=== PATIENT | male | born 1985 | race Caucasian/White ===

== ENCOUNTER 2016-12-21 16:57 | Emergency (ER) | payer OTHER ==
[~2016-12-21] VITALS: Ht 166.4 cm; Wt 73.4 kg
[2016-12-21 17:03] VITALS: TEMP 36.4; Ht 166.4 cm; Wt 73.4 kg
--- NOTE | 2016-12-21 18:29 | EMERGENCY ROOM VISIT NOTE ---
History First contact with patient: 18:26 Chief Complaint: CHEST PAIN Stated Complaint: CHEST PAIN,IRREGULAR HEARTBEAT Nursing Triage Summary: Patient ambulatory to triage with a steady and upright gait, states "I started working out for the first time in a while this week. After waking this morning, I noticed that I developed a tightness in the center of my chest. It has been coming and going throughout the day today. On my way home from work, I noticed that my pulse was pretty irradic too." Patient denies any medical history. History of Present Illness The patient is a 31 year old male who presents to the Emergency Room with complaints of chest tightness today Has resumed gyming after a 2 month hiatus. Last gym session on Saturday. Patient was well and Saturday morning, up until 9am after breakfast. [place] a chest tightness centrally - was stationary at the time when the tightness started. Since then, the tightness has been persistent and gotten progressively worse. No alleviating and exacerbating factors. Describes an episode of a tingling sensation diffusely over body, no numbness or weakness. No radiation of pain to arm, jaw or back. Not associated with SOB but does notice difficulty in chest expansion on full inspiration. Had some clamminess but unsure if he has had palpitations. Denies trauma. fall, and states he was focusing on cardio at the gym rather than weight lifting. No similar episodes in the past. No asthma, non smoker. No personal hx of cardiac issues. Fam history of HLD (mom), multiple TIAs (dad), [place] and CAD in aunts and uncles Review of Systems See HPI for pertinent positives and negatives. A total of ten systems were reviewed and were otherwise negative. Social History Smoking Status: Never Smoker Smokeless Tobacco Use: No Drug Use: none Marital Status: Housing Status: lives with family Occupation Status: employed Current/Historical Medications No Active Prescriptions or Reported Meds Physical Exam Vital Signs Date Time Temp Pulse Resp B/P (MAP) Pulse Ox O2 Delivery O2 Flow Rate FiO2 12/21/16 20:25 67 20 119/75 98 12/21/16 18:27 63 12/21/16 18:26 61 18 122/85 99 12/21/16 17:05 100 Room Air 12/21/16 17:03 36.4 67 18 140/99 97 Room Air Physical Exam GENERAL: Alert, sitting in bed, no acute distress, non-toxic HEAD: NC/AT. No sinus tenderness. NECK: Supple, no adenopathy, non-tender LUNGS: Clear to auscultation. Normal chest wall mechanics, good air entry. No crepitations, crackles, or wheezes HEART: No murmurs, S1 and S2 normal CHEST: No reproducible tenderness with palpation or arm movement. ABDOMEN: abdomen soft, non-tender, normo-active bowel sounds, no masses, no rebound or guarding. BACK: Back is symmetrical on inspection, no deformities, no midline tenderness, no CVA tenderness. SKIN: Warm, pink, dry. No erythema, rashes, or bruising. EXTREMITIES: Grossly normal. No pitting edema. Calves non tender. Strength 5/5 bilaterally. NEURO: Alert, Ox3. No focal deficits. Normal sensorium, cranial nerves II-XII grossly intact, normal speech. PSYCH: Mood and affect appropriate. Medical Decision & Procedures ER Provider Diagnostic Interpretation: CHEST ONE VIEW PORTABLE HISTORY: Atypical Chest Pain COMPARISON: None. FINDINGS: The lungs are clear. Cardiac silhouette is normal in size. No pleural effusions. No pneumothorax. IMPRESSION: No acute process. Laboratory Results 12/21/16 19:07 Red Blood Count 4.66, Mean Corpuscular Volume 88.6, Mean Corpuscular Hemoglobin 29.6, Mean Corpuscular Hemoglobin Concent 33.4, Mean Platelet Volume 12.0, Neutrophils (%) (Auto) 65.2, Lymphocytes (%) (Auto) 27.0, Monocytes (%) (Auto) 6.9, Eosinophils (%) (Auto) 0.4, Basophils (%) (Auto) 0.4, Neutrophils # (Auto) 4.42, Lymphocytes # (Auto) 1.83, Monocytes # (Auto) 0.47, Eosinophils # (Auto) 0.03, Basophils # (Auto) 0.03 12/21/16 19:07 Test 12/21/16 19:07 White Blood Count 6.79 K/uL (4.8-10.8) Red Blood Count 4.66 M/uL (4.7-6.1) Hemoglobin 13.8 g/dL (14.0-18.0) Hematocrit 41.3 % (42-52) Mean Corpuscular Volume 88.6 fL (80-100) Mean Corpuscular Hemoglobin 29.6 pg (25-34) Mean Corpuscular Hemoglobin Concent 33.4 g/dl (32-36) Platelet Count 252 K/uL (130-400) Mean Platelet Volume 12.0 fL (7.4-10.4) Neutrophils (%) (Auto) 65.2 % Lymphocytes (%) (Auto) 27.0 % Monocytes (%) (Auto) 6.9 % Eosinophils (%) (Auto) 0.4 % Basophils (%) (Auto) 0.4 % Neutrophils # (Auto) 4.42 K/uL (1.4-6.5) Lymphocytes # (Auto) 1.83 K/uL (1.2-3.4) Monocytes # (Auto) 0.47 K/uL (0.11-0.59) Eosinophils # (Auto) 0.03 K/uL (0-0.5) Basophils # (Auto) 0.03 K/uL (0-0.2) RDW Standard Deviation 38.2 fL (36.4-46.3) RDW Coefficient of Variation 11.9 % (11.5-14.5) Immature Granulocyte % (Auto) 0.1 % Immature Granulocyte # (Auto) 0.01 K/uL (0.00-0.02) D-Dimer < 190 ug/L FEU (0-500) Anion Gap 4.0 mmol/L (3-11) Est Creatinine Clear Calc Drug Dose 94.0 ml/min Estimated GFR () 114.9 Estimated GFR (Non- 99.1 BUN/Creatinine Ratio 14.8 (10-20) Calcium Level 9.5 mg/dl (8.5-10.1) Troponin I < 0.015 ng/ml (0-0.045) Medications Administered Medications (Trade) Dose Ordered Sig/Julia Route Start Time Stop Time Status Last Admin Dose Admin Ketorolac Tromethamine (Toradol Inj) 30 mg NOW STAT IV 12/21/16 19:06 12/21/16 19:07 DC 12/21/16 19:15 30 MG Sodium Chloride 1,000 ml @ 999 mls/hr Q1H1M STAT IV 12/21/16 19:11 12/21/16 20:11 DC 12/21/16 19:18 999 MLS/HR ECG Indication: chest pain Rate (beats per minute): 59 Rhythm: sinus bradycardia ED Course 1827: The patient was evaluated in room C7. A complete history and physical exam was performed. Ordered labs and diagnostics. 1905: Patient reassessed. Symptoms unchanged. Ordered Toradol and IVF 1925: Patient reassessed. Feeling better. Updated of results Medical Decision Prior records/ancillary studies reviewed. Triage Nursing notes reviewed. Additional history obtained from patient and . The patient's history was concerning for chest pain. Differential diagnosis: Etiologies such as cardiac ischemia, aortic dissection, pulmonary embolism, pneumonia, pneumothorax, musculoskeletal, infections, pericarditis, myocarditis , esophageal rupture, gastrointestinal, as well as others were entertained. Physical examination: As above. ER treatment provided: IV Toradol, IVF - NSS On reassessment the patient felt better. Diagnostic interpretation by me: The electrocardiogram was negative for pathologic change. The labs revealed borderline anemia, normal BMP, negative troponin, negative d- dimer Imaging studies: Chest x-ray as above By the evaluation outlined above emergent etiologies such as cardiac ischemia, aortic dissection, pulmonary embolism, pneumonia, pneumothorax, infections, pericarditis, myocarditis, gastrointestinal, as well as others were deemed relatively unlikely. The patient and were informed about the findings as listed above. All questions were answered and they were pleased with the treatment. Return instructions were outlined and the patient was discharged in stable condition. Outpatient prescription management: Nil Referral: The patient was referred back to his primary care physician for follow-up in 2 to 3 days for a recheck of the current condition. Impression Primary Impression: Non-cardiac chest pain Departure Information Dispostion Home / Self-Care Condition GOOD Prescriptions No Active Prescriptions or Reported Meds Referrals Jorden Thurman M.D. ([facility]) (PCP) Patient Instructions My [facility] Resident Tracking Resident Involvement: Resident Care Provided Care Provided: Adult ED
--- NOTE | 2016-12-21 18:44 | DIAGNOSTIC IMAGING REPORT ---
CHEST ONE VIEW PORTABLE HISTORY: Atypical Chest Pain COMPARISON: None. FINDINGS: The lungs are clear. Cardiac silhouette is normal in size. No pleural effusions. No pneumothorax. IMPRESSION: No acute process. Electronically signed by: Eladio Villavicencio M.D. 12/21/2016 6:43 PM Dictated Date/Time: 12/21/2016 6:42 PM
[2016-12-21] MEDS ORDERED: KETOROLAC TROMETHAMINE 30 MG/ML VIAL IV STA (19:06)
[2016-12-21] MEDS ORDERED: SODIUM CHLORIDE 0.9% 1000ML 1,000 ML IV STA (19:11)
[2016-12-21 19:21] LABS: BASO % 0.4 %; BASO ABS # 0.03 K/uL (0-0.2); COMPLETE YES; EOS % 0.4 %; HEMATOCRIT 41.3 % (42-52); IG% 0.1 %; LYMPH ABS # 1.83 K/uL (1.2-3.4); MEAN CELL VOLUME 88.6 fL (80-100); MEAN CORPUSCULAR HEMOGLOBIN 29.6 pg (25-34); MEAN CORPUSCULAR HGB CONC 33.4 g/dl (32-36); MONO % 6.9 %; NEUT % 65.2 %; PLATELET COUNT 252 K/uL (130-400); RED BLOOD COUNT 4.66 M/uL (4.7-6.1); WHITE BLOOD COUNT 6.79 K/uL (4.8-10.8)
[2016-12-21 19:39] LABS: BLOOD UREA NITROGEN 15 mg/dl (7-18); BUN/CREATININE RATIO 14.8 (10-20); CALCIUM 9.5 mg/dl (8.5-10.1); CARBON DIOXIDE 30 mmol/L (21-32); CHLORIDE 106 mmol/L (98-107); GLUCOSE 99 mg/dl (70-99); POTASSIUM 4.2 mmol/L (3.5-5.1); SODIUM 140 mmol/L (136-145)
[2016-12-21 20:25] VITALS: BP 119/75; PULSE 67; O2SAT 98
--- NOTE | 2016-12-21 20:44 | EMERGENCY ROOM VISIT NOTE ---
History Report prepared by Lora: Yan Reid Under the Supervision of: Dr. Juan Ramon Alford D.O. First contact with patient: 18:23 Chief Complaint: CHEST PAIN Stated Complaint: CHEST PAIN,IRREGULAR HEARTBEAT Nursing Triage Summary: Patient ambulatory to triage with a steady and upright gait, states "I started working out for the first time in a while this week. After waking this morning, I noticed that I developed a tightness in the center of my chest. It has been coming and going throughout the day today. On my way home from work, I noticed that my pulse was pretty irradic too." Patient denies any medical history. History of Present Illness The patient is a 31 year old male who presents to the Emergency Room with complaints of chest tightness that began 8 hours ago. He rates his symptom severity a 6/10. The patient recently began working out again after a 2 month hiatus. His last gym session was yesterday. Today, he was at work working with stationary machinery. He went throughout his day, and on his way home while he was in the car, the pain was worse than it had been in the beginning. He got clammy at this time but denied shortness breath. He denies any diaphoresis, shortness of breath, recent falls or trauma, abdominal pain, or diarrhea. He notes that he has been doing cardio, not weight lifting. He denies any recent trips or sick contacts. He does not have a personal cardiac history, but has an extensive cardiac family history. Denies any history of CAD, hypertension, hyperlipidemia or smoking. He also notes that he has been having tingling diffusely. Patient denies any swelling of his calves, recent surgeries, recent trips, hemoptysis, history of cancer or previous blood clots. Source of History: patient Onset: 8 hours ago Position: chest Symptom Intensity: 6/10 Quality: other (Tightness) Timing: constant Associated Symptoms: No fevers, No diaphoresis, No SOB, No abdominal pain, No diarrhea Note: He experienced a clammy feeling and diffuse tingling. Review of Systems See HPI for pertinent positives & negatives. A total of 10 systems reviewed and were otherwise negative. Family History FH: heart disease Hypertension Social History Smoking Status: Never Smoker Smokeless Tobacco Use: No Drug Use: none Marital Status: Housing Status: lives with family Occupation Status: employed Current/Historical Medications No Active Prescriptions or Reported Meds Allergies Coded Allergies: No Known Allergies (Unverified , 12/21/16) Physical Exam Vital Signs Date Time Temp Pulse Resp B/P (MAP) Pulse Ox O2 Delivery O2 Flow Rate FiO2 12/21/16 20:25 67 20 119/75 98 12/21/16 18:27 63 12/21/16 18:26 61 18 122/85 99 12/21/16 17:05 100 Room Air 12/21/16 17:03 36.4 67 18 140/99 97 Room Air Physical Exam GENERAL: alert, well appearing, well nourished, no distress, non-toxic, sitting up in bed. EYE EXAM: normal conjunctiva OROPHARYNX: no exudate, no erythema, lips, buccal mucosa, and tongue normal and mucous membranes are moist NECK: supple, no nuchal rigidity, no adenopathy, non-tender LUNGS: Clear to auscultation. Normal chest wall mechanics HEART: no murmurs, S1 normal and S2 normal ABDOMEN: abdomen soft, non-tender, normo-active bowel sounds, no masses, no rebound or guarding. BACK: Back is symmetrical on inspection and there is no deformity, no midline tenderness, no CVA tenderness. SKIN: no rashes and no bruising UPPER EXTREMITIES: upper extremities are grossly normal. Radial pulses equal. LOWER EXTREMITIES: No pitting edema. Calves equal bilaterally. NEURO EXAM: Normal sensorium, cranial nerves II-XII grossly intact, normal speech, no gross weakness of arms, no gross weakness of legs. Medical Decision & Procedures ER Provider Diagnostic Interpretation: Radiology results as stated below per my review and the radiologist's interpretation: CHEST ONE VIEW PORTABLE HISTORY: Atypical Chest Pain COMPARISON: None. FINDINGS: The lungs are clear. Cardiac silhouette is normal in size. No pleural effusions. No pneumothorax. IMPRESSION: No acute process. Electronically signed by: Eladio Villavicencio M.D. 12/21/2016 6:43 PM Dictated Date/Time: 12/21/2016 6:42 PM Laboratory Results 12/21/16 19:07 Red Blood Count 4.66, Mean Corpuscular Volume 88.6, Mean Corpuscular Hemoglobin 29.6, Mean Corpuscular Hemoglobin Concent 33.4, Mean Platelet Volume 12.0, Neutrophils (%) (Auto) 65.2, Lymphocytes (%) (Auto) 27.0, Monocytes (%) (Auto) 6.9, Eosinophils (%) (Auto) 0.4, Basophils (%) (Auto) 0.4, Neutrophils # (Auto) 4.42, Lymphocytes # (Auto) 1.83, Monocytes # (Auto) 0.47, Eosinophils # (Auto) 0.03, Basophils # (Auto) 0.03 12/21/16 19:07 Test 12/21/16 19:07 White Blood Count 6.79 K/uL (4.8-10.8) Red Blood Count 4.66 M/uL (4.7-6.1) Hemoglobin 13.8 g/dL (14.0-18.0) Hematocrit 41.3 % (42-52) Mean Corpuscular Volume 88.6 fL (80-100) Mean Corpuscular Hemoglobin 29.6 pg (25-34) Mean Corpuscular Hemoglobin Concent 33.4 g/dl (32-36) Platelet Count 252 K/uL (130-400) Mean Platelet Volume 12.0 fL (7.4-10.4) Neutrophils (%) (Auto) 65.2 % Lymphocytes (%) (Auto) 27.0 % Monocytes (%) (Auto) 6.9 % Eosinophils (%) (Auto) 0.4 % Basophils (%) (Auto) 0.4 % Neutrophils # (Auto) 4.42 K/uL (1.4-6.5) Lymphocytes # (Auto) 1.83 K/uL (1.2-3.4) Monocytes # (Auto) 0.47 K/uL (0.11-0.59) Eosinophils # (Auto) 0.03 K/uL (0-0.5) Basophils # (Auto) 0.03 K/uL (0-0.2) RDW Standard Deviation 38.2 fL (36.4-46.3) RDW Coefficient of Variation 11.9 % (11.5-14.5) Immature Granulocyte % (Auto) 0.1 % Immature Granulocyte # (Auto) 0.01 K/uL (0.00-0.02) D-Dimer < 190 ug/L FEU (0-500) Anion Gap 4.0 mmol/L (3-11) Est Creatinine Clear Calc Drug Dose 94.0 ml/min Estimated GFR () 114.9 Estimated GFR (Non- 99.1 BUN/Creatinine Ratio 14.8 (10-20) Calcium Level 9.5 mg/dl (8.5-10.1) Troponin I < 0.015 ng/ml (0-0.045) Laboratory results per my review. Medications Administered Medications (Trade) Dose Ordered Sig/Julia Route Start Time Stop Time Status Last Admin Dose Admin Ketorolac Tromethamine (Toradol Inj) 30 mg NOW STAT IV 12/21/16 19:06 12/21/16 19:07 DC 12/21/16 19:15 30 MG Sodium Chloride 1,000 ml @ 999 mls/hr Q1H1M STAT IV 12/21/16 19:11 12/21/16 20:11 DC 12/21/16 19:18 999 MLS/HR ECG Indication: chest pain (tightness) Rate (beats per minute): 59 Rhythm: sinus bradycardia Findings: no ectopy, other (Normal axis) ED Course ED COURSE: Vital signs were reviewed and showed nothing abnormal The patients medical record was reviewed The above diagnostic studies were performed and reviewed. ED treatments and interventions as stated above. 1822: The patient was evaluated in room C7. A complete history and physical examination was performed. 1905: Ordered Toradol Inj 30 mg IV 1957: The patient's pain is almost completely gone. I updated him at this time. He has no other complaints. 2004: Upon reevaluation, the patient is resting. I discussed my findings with the patient and he understands and agrees with the treatment plan. The patient remained stable while under my care. The patient appeared well at the time of discharge. Medical Decision Differential diagnoses includes but is not limited to acute coronary syndrome, myocardial infarction, pericarditis, pulmonary embolus, aortic dissection, pneumonia, pneumothorax, musculoskeletal, shingles, esophageal. Patient is a 31-year-old male who presents the ER for chest pain which is been present since 9 AM this morning. Denies any shortness of breath. He has no PE or CAD risk factors with the exception of family history. No true exacerbating or remitting factors. D-dimer was negative. Troponin was negative with pain present greater than 8 hours. EKG and chest x-ray were unremarkable. IV was established and is given fluids. He is given Toradol and felt significantly better. Based on HEART score he is a low risk. I discussed these findings with him. He was discharged instructed to follow with his PCP. Discussed with Pt concerning signs and symptoms to watch out for. Pt was instructed to follow up with their PCP and discussed with the patient their option to return to the ED at anytime for persistent or worsening symptoms. The appropriate anticipatory guidance and out-patient management, including indications for return to the emergency department, were explained at length to the patient and understood. Medication Reconcilliation Current Medication List: was personally reviewed by me Blood Pressure Screening Patient's blood pressure: Normal blood pressure Blood pressure disposition: Did not require urgent referral Impression Primary Impression: Tightness in chest Scribe Attestation The scribe's documentation has been prepared under my direction and personally reviewed by me in its entirety. I confirm that the note above accurately reflects all work, treatment, procedures, and medical decision making performed by me. Departure Information Dispostion Home / Self-Care Prescriptions No Active Prescriptions or Reported Meds Referrals Jorden Thurman M.D.([facility]) (PCP) Forms HOME CARE DOCUMENTATION FORM, IMPORTANT VISIT INFORMATION Patient Instructions My [facility] Additional Instructions You were seen in the ED today for an acute episode of chest tightness. Labs and imaging ruled out emergent cardiac and pulmonic etiology. Your vitals were noted to be stable. This was reasurring. Upon discharge, we urge you to follow up with your PCP within the next few days. If symptoms persist or worsen, we advise you to seek medical care sooner. You have been examined and treated today on an emergency basis only. This is not a substitute for, or an effort to provide, complete comprehensive medical care. It is impossible to recognize and treat all injuries or illnesses in a single emergency department visit. It is therefore important that you make a follow up with your physician for close monitoring. We urge you to return to ER if similar symptoms return or if you develop worsening or persistent dizziness, vomiting, headache, fevers, chest pains, difficulty breathing, black or bloody stools, slurred speech, numbness, weakness , visual changes, or as needed.
[2016-12-21] MEDS ORDERED: ASPI81TA28 PO (21:14)
== END 2016-12-21 20:26 | disposition home or self-care (01) ==
LOC: C.EDB 16:59 → C.EDC 20:26
DX: R07.89 Other chest pain (principal); Z82.49 Family history of ischemic heart disease and other diseases of the circulatory system